=== PATIENT | female | born 1965 | race African-American/Black ===

== ENCOUNTER 2023-12-10 15:49 | Emergency (ER) | payer OTHER, SELFPAY ==
--- NOTE | ~2023-12-10 | CT_ITS ---
CT brain wo con Ordering provider: Ovidio Red MD History: 58 years Female with . ams . Comparison: None. Technique: CT of the head without contrast. Radiation reduction technique utilized.The dose-length product was 605.33 mGy-cm. FINDINGS: BRAIN PARENCHYMA AND CSF SPACES: No midline shift, mass effect or hemorrhage. The brain parenchyma a nd CSF spaces are otherwise normal. VISUALIZED PARANASAL SINUSES: Well aerated. MASTOIDS: Well aerated. BONES: The bones appear intact. SOFT TISSUES: Visualized nasopharynx is normal. Superficial soft tissues are normal. IMPRESSION: No acute intracranial findings. Reviewed, dictated and finalized at location A.
[2023-12-10 15:50] VITALS: BP 117/92; PULSE 103; RESP 16; TEMP 36.5; O2SAT 100
--- NOTE | 2023-12-10 15:55 | ECG_ITS ---
Test Date: 2023-12-10 15:54:34 Measurements Intervals [place] Rate: 96 P: 20 SD: 184 QRS: -18 QRSD: 125 T: -33 QT: 362 QTc: 460 Interpretive Statements SINUS RHYTHM INTRAVENTRICULAR CONDUCTION DELAY MINIMAL Q WAVES- ANTEROLATERAL LEADS INFERIOR MYOCARDIAL INFARCTION , OF INDETERMINATE AGE BORDERLINE ST-T WAVE ABNORMALITY- ANTEROLATERAL LEADS BASELINE ARTIFACT- V6 ABNORMAL ECG No previous ECG available for comparison Electronically Signed On 12-10-2023 20:31:27 CDT by Broderick Solomon D.O.
[2023-12-10 16:57] LABS: Basophils Percent Auto 0.4 % (0.2-1.2); Eosinophils Absolute Auto 0.2 K/mm3 (0-0.3); Eosinophils Percent Auto 2.4 % (0-4.4); Hematocrit 41.1 % (37.0-47.0); Hemoglobin 13.1 g/dL (12.0-15.0); Immature Granulocyte Absolute 0.02 K/mm3 (0.00-0.031); Immature Granulocyte Percent A 0.3 % (0-0.5); Lymphocytes Absolute Auto 2.56 K/mm3 (0.9-3.2); Lymphocytes Percent Auto 37.9 % (18.3-44.2); Mean Corpuscular HGB Conc 31.9 g/dl (32-36); Mean Corpuscular Hemoglobin 28.1 pg (26-34); Mean Corpuscular Volume 88.2 fl (80-100); Mean Platelet Volume 11.8 fl (7.4-10.4); Monocytes Absolute Auto 0.6 K/mm3 (0.1-0.6); Monocytes Percent Auto 8.1 % (2.6-8.5); Neutrophils Absolute Auto 3.4 K/mm3 (1.3-6.7); Neutrophils Percent Auto 50.9 % (45.5-73.1); Platelet Count Result 246 k/mm3 (150-375); Red Blood Count 4.66 M/mm3 (4.2-5.4); White Blood Count 6.8 K/mm3 (4.5-10.0)
[2023-12-10 17:05] LABS: Alanine Aminotransferase 11 U/L (6-35); Albumin Level 4.2 g/dL (3.5-5.1); Alkaline Phosphatase 84 U/L (38-126); Anion Gap 11 mmol/L (4-12); Aspartate Amino Transferase 19 U/L (14-36); Bilirubin,Total 0.3 mg/dL (0.2-1.3); Blood Urea Nitrogen 11 mg/dL (7-17); Calcium 9.4 mg/dL (8.4-10.2); Carbon Dioxide 31 mmol/L (22-30); Chloride 101 mmol/L (98-107); Estimated CRCL calculation 66 ml/min; Estimated Glomerular Filt Rate > 60; Glucose 109 mg/dL (65-110); Potassium 3.1 mmol/L (3.4-5.0); Sodium 143 mmol/L (137-145)
[2023-12-10 17:11] LABS: Prothrombin Time 13.4 Seconds (11.1-14.7)
[2023-12-10 17:30] LABS: Add Urine Microscopic? NO; Appearance Urine Clear (Clear); Bilirubin Urine Negative (Negative); Blood Urine Negative (Negative); Color Urine Yellow (Yellow); Glucose Urine UA 3+ mg/dL (Negative); Ketones Urine Negative (Negative); Leukocyte Esterase Ur Negative LEU/UL (Negative); Nitrate Urine Negative (Negative); Protein Urine Negative (Negative); Urobilinogen Urine 0.2 mg/dL (<2.0); pH Urine 7.5 (5.0-9.0)
--- NOTE | 2023-12-10 17:51 | ED.AMS ---
HPI - Altered Mental Status General Chief Complaint: Altered Mental Status Stated Complaint: AMS Time Seen by Provider: 12/10/23 17:03 Source: EMS Mode of arrival: EMS Limitations: altered mental status History of Present Illness HPI narrative: Patient is a 58-year-old female who presents to the ER with altered mental status. Per patient's nurse she has a history of schizophrenia. She lives in a treatment facility but today was on a day trip with family when she took her psychiatric medications and then had decreased LOC. Patient arrived to the ER via EMS. MD complaint: altered mental status, confusion and decreased responsiveness Related Data Allergies Allergy/AdvReac Type Severity Reaction Status Date / Time aspirin Allergy Unknown Verified 12/10/23 19:05 Penicillins Allergy Unknown Verified 12/10/23 19:05 Review of Systems Review of Systems: All systems reviewed & are unremarkable except as noted in HPI and below Exam Narrative: GENERAL: Well-appearing, well-nourished, non-toxic, in no acute distress. HEAD: Normocephalic, atraumatic. NECK: Supple. No adenopathy, no masses. RESPIRATORY: Airway patent, respirations nonlabored. Clear to auscultation bilaterally, no rales, rhonchi, wheezing. CARDIOVASCULAR: Regular rate and rhythm without murmurs, rubs, or gallops. Peripheral pulses 2+ and equal bilaterally. ABDOMINAL: Soft, nontender, nondistended, no hepatosplenomegaly. Normoactive BS. MUSCULOSKELETAL: Moves all extremities. Strength/ROM intact without gross deformities. SKIN: Warm, dry, normal color. No rashes. NEURO: A&O X3. Speech clear. Cranial nerves II-XII grossly intact. No ataxic movements. PSYCHIATRIC: Minimal interaction with staff until pt sternal rubbed. Const: General: no acute distress Nutritional Appearance: obese Limitations: altered mental status Other: The patient was unresponsive upon initial exam but nurse sternal rub to patient and she started yelling. Patient said ?you motherfuckers! I hate you son of a bitdre! Leave me the fuck alone! She then turned over on her R side and went back to sleep. Course Vital Signs Vital signs: Vital Signs Temperature 36.5 C 12/10/23 15:50 Pulse Rate 103 H 12/10/23 15:50 Respiratory Rate 16 12/10/23 15:50 Blood Pressure 117/92 H 12/10/23 15:50 Pulse Oximetry 100 12/10/23 15:50 Temperature 36.5 C 12/10/23 15:50 Pulse Rate 103 H 12/10/23 15:50 Respiratory Rate 16 12/10/23 15:50 Blood Pressure 117/92 H 12/10/23 15:50 Pulse Oximetry 100 12/10/23 15:50 Oxygen Delivery Room Air 12/10/23 16:13 MDM - Altered Mental Status MDM Narrative Medical decision making narrative: Patient is a 58-year-old female who presents to the ER with altered mental status. Per patient's nurse she has a history of schizophrenia. She lives in a treatment facility but today was on a day trip with family when she took her psychiatric medications and then had decreased LOC. Patient arrived to the ER via EMS. Pt's physical examination is unremarkable. She is not responsive to interaction with staff until she is terminal round. Then patient verbally responded with a string of expletives, turned over, and went back to sleep. SELLING MANAGER ordered IV fluids for pt, but pt ripped out her IV prior to administration. Patient verbalizes her desire to go back to the facility where she lives and reports she's just tired and needed a nap. All blood work and imaging was within normal limits besides her low potassium. Will treat pt's potassium with oral replacement. Pt's blood work indicated mild dehydration. IV bolus ordered but pt took out her IV prior to receiving the rehydration. Will advise pt to follow-up with her PCP regarding her slightly elevated glucose and A1C. Pt verbalizes understanding of plan. Differential Diagnosis Differential diagnosis: Likely altered mental status, delirium, hyponatremia, sepsis and other (christopher
--- NOTE | 2023-12-10 18:11 | PC.NURSE ---
Patient pulled out IV. Patient alert and able to ambulate at this time with this RN
[2023-12-10 18:45] LABS: Ethanol < 10 mg/dL (<10)
[2023-12-10 18:48] LABS: Hemoglobin A1C 5.8 % (<5.7)
[2023-12-10 19:01] VITALS: BP 112/86; PULSE 110; RESP 21; O2SAT 97
[2023-12-10] MEDS: POTASSIUM CHLORIDE 20 MEQ ER TABLET 40 MEQ PO (19:09)
--- NOTE | 2023-12-10 19:19 | PC.NURSE ---
Assumed care of pt from JANET Laughlin at this time. Pt resting in bed w call light within reach.
[2023-12-10 19:30] LABS: Amphetamine Screen Urine Negative (Negative); Barbiturate Screen Urine Negative (Negative); Benzodiazepines Screen Urine Negative (Negative); Cannabinoid Screen Urine Negative (Negative); Cocaine Screen Urine Negative (Negative); Methadone Screen Urine Negative (Negative); Opiate Screen Urine Negative (Negative); Phencyclidine Screen Urine Negative (Negative)
[2023-12-10 20:16] VITALS: BP 114/79; PULSE 95; RESP 20; O2SAT 97
== END 2023-12-10 20:53 ==
PROVIDERS: Emergency Medicine; Emergency Provider Registered Nurse
DX: R41.82 Altered mental status, unspecified (principal); F20.9 Schizophrenia, unspecified; Z79.899 Other long term (current) drug therapy; I45.9 Conduction disorder, unspecified; R94.31 Abnormal electrocardiogram [ECG] [EKG]
CPT/HCPCS: 36415; 70450; 80053; 80307; 81003; 83036; 84443; 85025; 85610; 85730; 93005; 99284; A9270